=== PATIENT | female | born 1995 | race Caucasian/White ===

== ENCOUNTER 2017-07-19 14:40 | Emergency (ER) | payer OTHER ==
--- NOTE | 2017-07-19 15:13 | ER Document Report ---
ED Seizure - General Mode of Arrival: Ambulatory Information source: Patient - HPI Patient complains to provider of: History of seizures Quality of pain: Achy Severity: None Continued on arrival to ED: No Can details of seizure be obtained/verified: No Current seizure medications: Lamictal Preceding symptoms/context: Missed dose of meds Post-ictal symptoms: Headache Associated Symptoms: None <HELEN GRAHAM - Last Filed: 07/19/17 22:23> <HUE HENRY - Last Filed: 07/19/17 23:14> - General Chief Complaint: Probable Seizure Stated Complaint: POSSIBLE SEIZURE Notes: Patient is a 21-year-old female who presents to the emergency department today with complaints of a seizure that occurred prior to arrival. Patient states that she was in her car getting money out of the bank when the seizure occurred. Patient states she did not fall and did not hit her head. Patient states she has a mild headache now which is common for her after a seizure. Patient is on Lamictal 100/300 and she has missed 2 dosages of medication recently. Patient states she has been tried on Keppra in the past and it "does not work". (HELEN GRAHAM) - Related Data Allergies/Adverse Reactions: No Known Allergies Allergy (Unverified 07/19/17 16:02) Past Medical History - General Information source: Patient - Social History Smoking Status: Never Smoker Cigarette use (# per day): No Frequency of alcohol use: Social Drug Abuse: None Lives with: Family Family History: Reviewed & Not Pertinent Neurological Medical History: Reports: Hx Seizures Surgical Hx: Negative <HELEN GRAHAM - Last Filed: 07/19/17 22:23> Review of Systems - Review of Systems Constitutional: No symptoms reported EENT: No symptoms reported Cardiovascular: No symptoms reported Respiratory: No symptoms reported Gastrointestinal: No symptoms reported Genitourinary: No symptoms reported Female Genitourinary: No symptoms reported Musculoskeletal: No symptoms reported Skin: No symptoms reported Hematologic/Lymphatic: No symptoms reported Neurological/Psychological: See HPI, Seizure, Headaches -: Yes All other systems reviewed and negative <HELEN GRAHAM - Last Filed: 07/19/17 22:23> Physical Exam <HELEN GRAHAM - Last Filed: 07/19/17 22:23> <HUE HENRY - Last Filed: 07/19/17 23:14> - Vital signs Vitals: Temp Pulse Resp BP Pulse Ox 98.7 F 104 H 16 122/78 97 07/19/17 14:40 07/19/17 14:40 07/19/17 14:40 07/19/17 14:40 07/19/17 14:40 - Notes Notes: Physical Exam: General: Drowsy but arousable. HEENT: Normocephalic. Atraumatic. PERRL. Extraocular movements intact. Oropharynx clear. Neck: Supple. Non-tender. Respiratory: No respiratory distress. Clear and equal breath sounds bilaterally. Cardiovascular: Regular rate and rhythm. Abdominal: Normal Inspection. Non-tender. No distension. Normal Bowel Sounds. Back: Non-tender. No deformity or step off. Extremities: Moves all four extremities. Upper extremities: Normal inspection. Normal ROM. Lower extremities: Normal inspection. No edema. Normal ROM. Neurological: Normal cognition. AAOx4. Normal speech. Psychological: Normal affect. Normal Mood. Skin: Warm. Dry. Normal color. (HELEN GRAHAM) Course - Laboratory Result Diagrams: 07/19/17 16:55 07/19/17 16:55 <HELEN GRAHAM - Last Filed: 07/19/17 22:23> - Laboratory Result Diagrams: 07/19/17 16:55 07/19/17 16:55 <HUE HENRY - Last Filed: 07/19/17 23:14> - Re-evaluation Re-evalutation: 07/19/17 Patient with known seizure history had a seizure. She has not taken her Trileptal. Patient was given Dilantin IV and also dose of Trileptal. No further seizure activity. Headache improved after Tylenol. Patient will be discharged home is to take her medications as prescribed. Stable for discharge. (HUE HENRY) - Vital Signs Vital signs: Temp Pulse Resp BP Pulse Ox 98.9 F 96 16 106/69 99 07/19/17 18:47 07/19/17 18:47 07/19/17 18:47 07/19/17 18:47 07/19/17 18:47 - Laboratory Laboratory results interpreted by me: 07/19/17 16:55 WBC 12.0 H Seg Neutrophils % 78.6 H Absolute Neutrophils 9.4 H Discharge <HELEN GRAHAM - Last Filed: 07/19/17 22:23> <HUE HENRY - Last Filed: 07/19/17 23:14> - Discharge Clinical Impression: Seizure Condition: Stable Disposition: HOME, SELF-CARE Instructions: Seizure, Known Epileptic ([facility]) Forms: Return to Work Scribe Attestation: 07/19/17 23:14 I personally performed the services described in the documentation, reviewed and edited the documentation which was dictated to the scribe in my presence, and it accurately records my words and actions. (HUE HENRY) Scribe Documentation - Scribe Written by Kyliee:: Chepe Mandujano, 07/19/2017 1617 acting as scribe for :: Whitney <HELEN GRAHAM - Last Filed: 07/19/17 22:23>
[2017-07-19] MEDS ORDERED: ACETAMINOPHEN 325 MG TABLET PO ONE (16:10)
[2017-07-19] MEDS ORDERED: PHENYTOIN SODIUM INJ/PF 250 MG/5 ML SDV IV ONE (16:10)
[2017-07-19] MEDS ORDERED: OXCARBAZEPINE 150 MG TABLET PO ONE (16:10)
[2017-07-19 17:16] LABS: ABSOLUTE BASOPHILS # (AUTO) 0.1 10^3/uL (0.0-0.2); ABSOLUTE LYMPHOCYTES (AUTO) 1.6 10^3/uL (0.5-4.7); ABSOLUTE MONOCYTES (AUTO) 0.9 10^3/uL (0.1-1.4); ABSOLUTE NEUT (AUTO) 9.4 10^3/uL (1.7-8.2); BASOPHILS % (AUTO) 0.8 % (0-2); EOSINOPHILS % (AUTO) 0.1 % (0-6); HEMATOCRIT 37.3 % (36.0-47.0); HEMOGLOBIN 12.8 g/dL (12.0-15.5); HGB HCT DIFFERENCE 1.1; LYMPHOCYTES % (AUTO) 13.1 % (13-45); MEAN CORPUSCULAR HEMOGLOBIN 32.2 pg (27.0-33.4); MEAN CORPUSCULAR HGB CONC 34.4 g/dL (32.0-36.0); MEAN CORPUSCULAR VOLUME 94 fl (80-97); MONOCYTES % (AUTO) 7.4 % (3-13); RED BLOOD COUNT 3.98 10^6/uL (3.72-5.28); RED CELL DISTRIBUTION WIDTH 12.4 % (11.5-14.0); SEGMENTED NEUTROPHILS % (AUTO) 78.6 % (42-78)
[2017-07-19 17:43] LABS: ANION GAP 13 (5-19); BLOOD UREA NITROGEN 17 mg/dL (7-20); CALCIUM 9.9 mg/dL (8.4-10.2); CARBON DIOXIDE 27 mmol/L (22-30); CHLORIDE 102 mmol/L (98-107); CREATININE RESULT 0.94 mg/dL (0.52-1.25); GLUCOSE 86 mg/dL (75-110); POTASSIUM 4.5 mmol/L (3.6-5.0); SODIUM 141.7 mmol/L (137-145)
[2017-07-19] MEDS ORDERED: ONDANSETRON ODT 4 MG TAB (6 TAB/DSPK) PO PRN (18:19)
[2017-07-19 18:48] VITALS: BP 106/69
== END 2017-07-19 18:50 | disposition home or self-care (01) ==
LOC: ER 14:40
DX: R56.9 Unspecified convulsions (principal); R51 Headache; Z79.899 Other long term (current) drug therapy
CPT/HCPCS: 99284; 96374; 36415; 84703; 85025; 80048; J1165